=== PATIENT | female | born 1975 | race Caucasian/White ===

== ENCOUNTER 2024-01-24 22:01 | Day surgery (SDC) | payer BC, SELFPAY ==
[2024-01-24 17:19] VITALS: BP 150/102
[2024-01-24] MEDS: ZOFRAN ODT (ORALLY DISINTEGRATING) 4 MG PO (17:24)
[2024-01-24 17:52] LABS: % Basophils 0.3 % (0-2); % Eosinophils 0.1 % (0-6); % Immature Granulocytes 0.5 % (0-0.5); % Lymphocytes 4.3 % (20.5-51.1); % Monocytes 3.1 % (1.7-9.3); % Neutrophils 91.7 % (42.2-75.2); Absolute Basophils 0.1 10^3/uL (0-0.2); Absolute Immature Granulocytes 0.1 10^3/uL (0-0.05); Absolute Lymphocytes 0.7 10^3/uL (1.2-3.4); Absolute Monocytes 0.5 10^3/uL (0.1-0.6); Absolute Neutrophils 14.7 10^3/uL (1.4-6.5); Hematocrit 38.1 % (37.0-47.0); Hemoglobin 11.2 g/dL (12.0-16.0); Mean Corp Hgb Conc. 29.4 g/dL (33.0-37.0); Mean Platelet Volume 9.8 fL (7.4-10.4); Nucleated Red Blood Cells % 0 %; Platelet Count 339 10^3/uL (130-400); Red Blood Cell Count 5.08 10^6/uL (4.20-5.40); Red Cell Dist. Width 16.8 % (11.5-14.5)
[2024-01-24 17:59] LABS: HCG, Serum Qualitative Screen Negative
[2024-01-24 18:03] LABS: ALT (SGPT) 24 U/L (0-35); AST (SGOT) 22 U/L (14-36); Albumin 4.3 g/dl (3.5-5.0); Alkaline Phosphatase 110 U/L (38-126); Blood Urea Nitrogen 20 mg/dl (7-17); Calcium 10.2 mg/dl (8.4-10.2); Carbon Dioxide 25 mmol/L (22-30); Chloride 102 mmol/L (98-107); Glucose 166 mg/dl (70-99); Potassium 4.2 mmol/L (3.5-5.1); Sodium 139 mmol/L (135-145); Total Bilirubin 0.5 mg/dl (0.2-1.3); Total Protein 7.4 g/dl (6.3-8.2); eGFR > 60.00
[2024-01-24 18:04] LABS: Lipase 67 U/L (23-300)
--- NOTE | 2024-01-24 18:50 | ED.GENMED ---
History of Present Illness
General
Chief Complaint: Abdominal Symptoms
Time Seen by Provider: 01/24/24 18:19
Travel History
Have you had any contact with someone who has COVID-19?: No
Do you have any symptoms of coronavirus? Fever > 100 degrees, chills, cough, shortness of breath, sore throat, loss of taste or smell, muscle aches, or headache?: No
History of Present Illness
History of Present Illness:
48-year-old female history of asthma, atrial fibrillation, migraines presenting with upper abdominal pain radiating to lower abdomen starting today after having a slice of pizza at 1 PM. Patient states that pain waxes and wanes but is constant.
Patient reports nausea and an episode of diarrhea since onset. Patient denies vomiting, fever, chest pain, shortness of breath, or abdominal symptoms. Patient denies history of previous abdominal surgeries.
Past History
Past History
ED Past Medical History: Asthma and Other (Paroxysmal A. fib)
ED Past Surgical History: None
Social History
Tobacco: Non-smoker
Alcohol: Occasional
Drug: None
Personal:
Living: with family
Phy Exam
Physical Exam
Physical Exam:
General: Alert, no acute distress
Head: NCAT
Eyes: clear conjunctiva
Neck: supple
Cardiac: regular rate and rhythm, no murmur
Lungs: clear to auscultation bilaterally. No wheezes, rales, or rhonchi. Speaking full unlabored sentences. No respiratory distress.
Abdomen: soft, nondistended diffusely tender. No rebound or guarding.
MSK: no lower extremity edema bilaterally. No deformity
Skin: warm, dry
Neuro: Alert and oriented x3. no focal deficits
Course
Orders/Labs/Results
Orders:
Orders
01/24/24 17:22
Test Result ONCE
01/24/24 17:23
Ondansetron Orally Disint [Zofran Odt (Orally Disintegrating)] 4 mg .ROUTE .STK-MED ONE
01/24/24 17:24
Ondansetron Orally Disint [Zofran Odt (Orally Disintegrating)] 4 mg PO NOW STA
01/24/24 17:38
Complete Blood Count/With Diff Urgent
Comprehensive Metabolic Panel Urgent
HCG, Serum Qualitative Screen Urgent
Lipase Urgent
01/24/24 18:35
CT Abd/pelvis W Iv Cont Urgent
Comment:
Reason For Exam: diffuse abdominal pain, greatest in epigastric
Famotidine [Pepcid] 20 mg IV NOW STA
01/24/24 18:50
UA Reflex to Culture [Urinalysis Reflex To Culture] Urgent
Date Specimen was Collected: 01/24/24
Time Specimen was Collected: 18:59
01/24/24 20:27
Morphine Sulfate 4 mg IV NOW STA
Piperacillin/Tazo 4.5 Gram [Zosyn] 4.5 gram in 100 ml IV NOW
Abnormal Lab Results
01/24/24
17:38
WBC 16.0 H 10^3/uL
(4.8-10.8)
Hgb 11.2 L g/dL
(12.0-16.0)
MCV 75.0 L fL
(81.0-99.0)
MCH 22.0 L pg
(27.0-31.0)
MCHC 29.4 L g/dL
(33.0-37.0)
RDW 16.8 H %
(11.5-14.5)
Abs Immat Gran (auto) 0.1 H 10^3/uL
(0-0.05)
Absolute Neuts (auto) 14.7 H 10^3/uL
(1.4-6.5)
Absolute Lymphs (auto) 0.7 L 10^3/uL
(1.2-3.4)
Neutrophils % 91.7 H %
(42.2-75.2)
Lymphocytes % 4.3 L %
(20.5-51.1)
BUN 20 H mg/dl
(7-17)
Glucose 166 H mg/dl
(70-99)
01/24/24 17:38
01/24/24 17:38
Vital Signs
Initial and Last Documented VS:
Initial Vital Signs
Temp Pulse Resp BP Pulse Ox
98.2 F 74 16 150/102 98
01/24/24 17:19 01/24/24 17:19 01/24/24 17:19 01/24/24 17:19 01/24/24 17:19
Last Documented Vital Signs
Temp Pulse Resp BP Pulse Ox
98.2 F 78 18 151/74 98
01/24/24 17:19 01/24/24 19:14 01/24/24 19:14 01/24/24 19:14 01/24/24 19:14
MDM/Problems Addressed
MDM/Problems Addressed:
Patient presents to the Emergency Department with ___upper abdominal pain radiating to lower abdomen
Number and Complexity of Problems Addressed at the Encounter
� Chronic conditions affecting care:
� Acute Exacerbation and/or Progression of Chronic Illness:
� Differential Diagnosis includes: Gastritis, gastroenteritis, pancreatitis, UTI, biliary colic, ischemic colitis, appendicitis, diverticulitis
Amount and/or Complexity of Data to be Reviewed and Analyzed
� I performed an independent evaluation of and my interpretation is:
EKG:
CT:
Xrays:
Laboratory Studies: leukocytosis
Other:
� Review of other/old records reveals:
� Clinical information was obtained by an independent historian:
� Prescriptions/Medications Considered but not given:
� Further testing considered but not performed:
Risk of Complications and/or Morbidity or Mortality of Patient Management
� Social Determinants of health affecting care:
� Discussion with other providers (PCP, Hospitalists, Consultants, etc):
� Escalation of care including admission/observation vs risk of discharge considered: 48-year-old female history of hypothyroidism status post thyroidectomy, atrial fibrillation not on any medications presenting with abdominal pain radiating to
lower abdomen starting today around 1 PM after eating pizza. Initially diffusely tender but then more localized to RLQ. CT abdomen/pelvis shows acute early/mild uncomplicated appendicitis. Ordered zosyn. Discussed with Dr. Adkins, general surgery,
who accepts for admission.
*Critical Care Note
Total Time (30-74mins, 75-104mins- exclusive of procedures): Not Applicable
ED Attending Note
-
Portions of this chart may have been created with voice recognition software.� Occasional wrong word or��sound alike� substitutions may have occurred due to the inherent limitations of voice recognition software.
Discharge Plan
Departure
Patient Disposition: Admit
Date of Disposition: 01/24/24
Time of Disposition: 20:37
Admit to doctor: Jed
Presentation/result/management discussed w/ accepting MD/DO: general surgery
Patient with high blood pressure during this ER visit?: Yes
Discharge Problem:
Acute appendicitis
Prescriptions:
No Action
ibuprofen [Advil Liqui-Gel] 200 MG capsule
600 mg PO Q8H PRN (Reason: mild pain)
Referrals:
Navjot Saucedo MD [Family Provider] -
Interventions
Interventions:
*Risk Screen - Suicide Last Done: 01/24/24 18:07
*General Assessment Last Done: 01/24/24 18:07
*Neglect/Abuse Screening Last Done: 01/24/24 18:07
ED- Fall Risk Assessment Last Done: 01/24/24 18:07
*ED COVID-19 Vaccine History Last Done: 01/24/24 17:19
RV-Xfjupv-Mkxgekvvfe Assessment Last Done: 01/24/24 18:07
Discharge Date and Time
Print Language: ICELANDIC
[2024-01-24] MEDS: PEPCID 20 MG IV (19:00)
[2024-01-24 19:14] VITALS: BP 151/74
[2024-01-24] MEDS: ZOSYN 100 IV (20:32)
[2024-01-24] MEDS: MORPHINE SULFATE 4 MG IV (20:33)
[2024-01-24 21:01] VITALS: BP 150/73
[2024-01-24] MEDS: DILAUDID 0.5 MG IV (21:51)
--- NOTE | 2024-01-24 22:07 | HPS.HSE ---
Addendum entered and electronically signed by Buster Adkins MD 01/25/24 07:21:
Patient seen and examined independently.
Patient is a 48 yo F with a PMH of morbid obesity, asthma, hypothyroidism s/p thyroidectomy, and paroxysmal A-fib (no anticoagulation) who presents with approximately 24 hours of abdominal pain. Ms. Puri states that her symptoms began
yesterday after having a slice of pizza. She describes a achy lower abdominal pain worse in the RLQ with sharper episodes of pain radiating across to her lower abdomen. Subjective fevers and chills. Associated nausea, but no vomiting. Looser
stools. She does have chronic GI issues and has self diagnosed IBS. No definitive GI diagnoses. No strong family history of colon cancer or IBD. No prior colonoscopies.
Gen: NAD
Abd: obese, soft, exam limited by obesity, RLQ tenderness, ND, non-peritoneal
Labs and imaging were reviewed.
Patient is a 48 yo F p/w acute appendicitis
The natural history and pathophysiology of appendicitis was discussed. CT scan imaging as a relates to her appendix was reviewed. Options for management including medical management with antibiotics versus surgical management with appendectomy
were considered and discussed. The pros and cons of both approaches was discussed. Specifically, we discussed failure of medical management and future episodes of appendicitis versus surgical risks.
Plan for a laparoscopic possible open appendectomy. The procedure itself, as well as the risks, benefits, and alternatives was discussed. Specifically, we discussed the risks of bleeding, infection, injury to surrounding structures (bowel,
bladder), staple line leak, need for open procedure. Typical postprocedural recovery was discussed. All questions answered. Consent signed.
-- Laparoscopic appendectomy
-- NPO, IVF
-- Antibiotics: Zosyn
Original Note:
Family Physician
-
Family Physician: Navjot Saucedo
Chief Complaint
-
abd pain
History of Present Illness
48-year-old female history of asthma, parox atrial fibrillation (due to hyperthyroidism) , migraines presenting with upper abdominal pain radiating to lower abdomen starting today after having a slice of pizza at 1 PM. During episode of pain she
experienced cold sweats and 'passed out.' Patient states that pain waxes and wanes but is constant. Patient reports nausea and an episode of diarrhea since onset. Patient denies vomiting, fever, chest pain, shortness of breath, or abdominal
symptoms. Patient denies history of previous abdominal surgeries.
ED treatment:
CT Abd: mild/early appendicitis
morphine- mild relief in pain
zosyn iv
WBC 16
Medical History
Past Medical History
Past Medical History: Reports Arrhythmia (parox afib due to hyperthyroidism (no meds)), Asthma, Hyperthyroidism and Other (migraine)
Past Surgical History: Reports Tonsilectomy
Additional Past Surgical History:
thyroidectomy 2019
anal fistula repair 1998
Social History
Tobacco: Non-smoker
Alcohol: None
Drug: None
Personal:
Living: With Family
Employment: Employed
Family History
Family History: Not pertinent
Allergies / Home Medications
Allergies reflects when Allergies were last updated in [employer].
Home Medications with original date entered in [employer]
Allergy/Medication List:
Allergies
Allergy/AdvReac Type Severity Reaction Status Date / Time
Sulfa (Sulfonamide Allergy Rash Verified 01/24/24 17:21
Antibiotics)
sulfamethoxazole Allergy Rash Verified 01/24/24 17:21
trimethoprim Allergy Denies Verified 01/24/24 17:21
Home Medications
no meds
Review of Systems
-
History Source: Patient
A 12 point ROS was completed and negative except as noted: Yes
Constitutional: Reports Chills
EENT: Reports No Symptoms
Respiratory: Reports No Symptoms
Cardiac: Reports No Symptoms
Abdomen/GI: Reports Abdominal Pain, Nausea and Diarrhea
: Reports No Symptoms
Musculoskeletal: Reports No Symptoms
Skin: Reports No Symptoms
Neurological: Reports No Symptoms
Endocrine: Reports No Symptoms
Hematologic/Lymphatic: Reports No Symptoms
Psych: Reports No Symptoms
Physical Exam
Vital Signs
Vital Signs
Temp Pulse Resp BP Pulse Ox
98.2 F 74 18 150/73 98
01/24/24 17:19 01/24/24 21:01 01/24/24 21:01 01/24/24 21:01 01/24/24 21:01
Physical Exam
General: Well Developed, Well Nourished, No Apparent Distress, Comfortable and Pain (12/21)
HEENT: NormoCephalic and Moist mucous membranes
Respiratory: Non Labored Respirations
Cardiac: S1/S2 and Regular Rhythm
Breast: Deferred by me
GI: Normal Bowel Sounds, Tender (epigastric to RLQ) and Distended (mildly, pt states she feels bloated)
Rectal: Deferred by Provider
Genito-urinary: Deferred by me
Musculoskeletal: No Clubbing and No Cyanosis
Skin: Warm and Dry
Neuro: Awake, Alert, Oriented and AO x 3
Hematologic/Lymphatic: No Lymphadenopathy
Psych: Calm
Laboratory Results
-
01/24/24 17:38
01/24/24 17:38
Laboratory Results
Total Bilirubin 0.5 mg/dl (0.2-1.3) 01/24/24 17:38
AST 22 U/L (14-36) 01/24/24 17:38
ALT 24 U/L (0-35) 01/24/24 17:38
Alkaline Phosphatase 110 U/L (38-126) 01/24/24 17:38
Lipase 67 U/L (23-300) 01/24/24 17:38
Data Reviewed
-
CT Scan: Report Reviewed by me and Discussed with Physician
Lab Data: Labs Reviewed by me
Impression/Plan
-
IMPRESSION:
acute uncomplicated appendicitis
PLAN:
Admit to service of Dr Adkins
Med surg
# acute appendicitis (uncomplicated)
Diet: Clears for now and NPO x meds after midnight
IVF: nss @100
Pain control: tylenol prn, dilaudid prn
cont zosyn
Other past med hx:
-parox afib due to hyperthyroidism- on no meds
-asthma - has not used albuterol in years
-morbid obesity
Full code
SCD for dvt proph
[2024-01-24 22:38] VITALS: BP 147/72
[2024-01-24 23:05] VITALS: BP 135/82
[2024-01-24 23:40] VITALS: BMI 39.2
[2024-01-24] MEDS: NSS 1000 IV (23:45)
[2024-01-24 23:46] VITALS: BP 131/80
[2024-01-25] VITALS (8 sets, daily range): BP systolic 121–153; BP diastolic 65–89; BMI 39.2; BMI 39.4
--- NOTE | 2024-01-25 00:30 | PTCARENOTE ---
Pt from ER via stretcher,tolerated transfer well.Pt ambulatory in to room,physical assessment preformed pt states abd pain is intermittent amd controlled at this time,IVT initiated NSS at 100mls,VS stable afebrile,sleeping after assessment.
[2024-01-25] MEDS: DILAUDID 0.5 MG IV (01:31)
[2024-01-25] MEDS: ZOSYN 50 IV ×3 (01:32→20:51)
[2024-01-25 05:14] LABS: Hematocrit 33.8 % (37.0-47.0); Hemoglobin 10.1 g/dL (12.0-16.0); Mean Corp Hgb Conc. 29.9 g/dL (33.0-37.0); Mean Corpuscular Hgb 22.2 pg (27.0-31.0); Mean Corpuscular Volume 74.3 fL (81.0-99.0); Mean Platelet Volume 10.3 fL (7.4-10.4); Platelet Count 329 10^3/uL (130-400); Red Blood Cell Count 4.55 10^6/uL (4.20-5.40); White Blood Cell Count 14.3 10^3/uL (4.8-10.8)
[2024-01-25 05:40] LABS: ALT (SGPT) 23 U/L (0-35); AST (SGOT) 23 U/L (14-36); Albumin 3.5 g/dl (3.5-5.0); Alkaline Phosphatase 88 U/L (38-126); Blood Urea Nitrogen 16 mg/dl (7-17); Calcium 8.9 mg/dl (8.4-10.2); Carbon Dioxide 23 mmol/L (22-30); Chloride 106 mmol/L (98-107); Estimated Creatinine Clearance > 125 ml/min; Glucose 113 mg/dl (70-99); Sodium 137 mmol/L (135-145); Total Bilirubin 0.7 mg/dl (0.2-1.3); Total Protein 6.5 g/dl (6.3-8.2); eGFR > 60.00
--- NOTE | 2024-01-25 07:22 | W.SUR.PREOP ---
Pre-Operative Surgical Note
-
I have examined this patient prior to the performance of the scheduled procedure.
The patient's condition is unchanged from the time of the current History and
Physical and the patient is able to undergo the scheduled procedure.
[2024-01-25] MEDS: DILAUDID 0.25 MG IV ×2 (07:46→18:11)
[2024-01-25] MEDS: NSS 1000 IV ×2 (10:15→20:53)
[2024-01-25] MEDS: ZOFRAN 4 MG IV (11:32)
--- NOTE | 2024-01-25 13:45 | CM ---
Initial assessment completed with patient and who live with 2 adult children (21 and 23) in a 2 story home with basement with B/B on 2nd and 1/2 bath on , 3 steps to enter, No DME in home, no in-home services, [employer] patient was independent,
drove and worked FT. No psychiatric hospitalizations. Pharmacy is [facility] in [place], [place], PCP is Dr. Navjot Saucedo in [facility]. Anticipate home with no needs.
[2024-01-25] MEDS: ZOSYN IV (14:16)
--- NOTE | 2024-01-25 14:49 | W.IMMPOSTOP ---
Addendum entered and electronically signed by Buster Adkins MD 01/25/24 14:58:
[facility]#[id number]
Original Note:
Surgical Immed Post Op Note
-
Primary Surgeon: Jed
Assisting Surgeon: None
Pre-op Diagnosis: Acute appendicitis
Post-op Diagnosis: Acute appendicitis
Procedure Performed: Laparoscopic appendectomy
Anesthesia Type: General
Specimen / Cultures:
1. Appendix
Estimated Blood Loss: 3 cc
Complications: None
Operative Findings:
1. Acutely inflamed, non-perforated appendix
2. Mesentery taken with [employer], Base with paez load stapler
[2024-01-25] MEDS: ROXICODONE 5 MG PO (15:48)
--- NOTE | 2024-01-25 15:54 | CM ---
Addendum entered by Ivone Zuluaga 01/26/24 15:23:
Discharge on 01/25/24 was postponed due to patient experiencing abdominal pain and nausea. Remained in hospital overnight for observation and management of symptoms. Patient is feeling better and has been medically cleared for discharge today.
Patient does not feel she needs any skilled services after discharge. will transport home.
Original Note:
Patient has been medically cleared for discharge to home with no additional skilled services. transporting home.
--- NOTE | 2024-01-25 18:32 | W.PN.SURGUPD ---
Surgical Update
Surgical Update
Patient reports some persistent postoperative pain, not unexpected or worrisome at this time. Patient to remain in hospital overnight for close monitoring. Tentative plan for discharge tomorrow.
--- NOTE | 2024-01-25 18:52 | PTCARENOTE ---
Patient with discharge order pending tolerating dinner and pain being managed- patient complaining of 6/10 abdominal pain and pain with dinner. Requested to stay the night and discharge tomorrow. Dr. Adkins notified and stated that was okay.
[2024-01-26] MEDS: ZOSYN 50 IV ×2 (01:05→09:10)
[2024-01-26] MEDS: ZOFRAN 4 MG IV (01:55)
[2024-01-26] MEDS: DILAUDID 0.25 MG IV (02:25)
[2024-01-26 04:23] VITALS: BP 137/90; BMI 39.4
[2024-01-26] MEDS: NSS 1000 IV (06:22)
[2024-01-26 07:26] VITALS: BP 134/73
--- NOTE | 2024-01-26 10:23 | W.PN.GS2 ---
Today's Communication / Plan
-
-- DC today
Assessment / Plan
-
Patient is a 48 yo F POD#1 s/p laparoscopic appendectomy
Recovering well. No postoperative concerns.
-- Regular diet
-- Pain control: Tylenol, Toradol, Oxycodone
-- HLIV
-- Lovenox for DVT
-- No need for further abx
-- DC today
Subjective Data
-
Date of Service: January 26, 2024
Mild nausea overnight. Abdominal soreness. No nausea or emesis. Afebrile. Minimal ambulation.
Objective Data
-
Intake and Output
01/25/24 01/26/24 01/27/24
06:59 06:59 06:59
Intake Total 500 / 500 2580 / 2580
Balance 500 / 500 2580 / 2580
Intake:
Oral fluids 480 / 480
IV fluids (Total) 500 / 500 2000 / 2000
Normosol 100 / 100
IV piggybacks 100 / 100
Other:
Number of approximated MODERATE 4
amounts of urine
Number of approximated LARGE 1
amounts of urine
How many times incontinent 1
MODERATE amount urine
Number of unmeasured liquid
stools
Rectum 1
Vital Signs
Temp Pulse Resp BP Pulse Ox
98.5 F 78 17 134/73 97
01/26/24 07:26 01/26/24 07:26 01/26/24 07:26 01/26/24 07:26 01/26/24 07:26
Lab Results
01/25/24 04:25
01/25/24 04:25
Calcium 8.9 mg/dl (8.4-10.2) 01/25/24 04:25
Total Bilirubin 0.7 mg/dl (0.2-1.3) 01/25/24 04:25
AST 23 U/L (14-36) 01/25/24 04:25
ALT 23 U/L (0-35) 01/25/24 04:25
Alkaline Phosphatase 88 U/L (38-126) 01/25/24 04:25
Total Protein 6.5 g/dl (6.3-8.2) 01/25/24 04:25
Albumin 3.5 g/dl (3.5-5.0) 01/25/24 04:25
Physical Exam
-
Gen: NAD
Abd: soft, mild tenderness, obese, non-peritoneal, incisions c/d/i - no erythema, ecchymosis or drainage
[2024-01-26 11:40] VITALS: BP 160/85
--- NOTE | 2024-01-26 12:34 | PTCARENOTE ---
Pt noted to be hypertensive while resting in bed, denies pain at this time. Dr Dunbar made aware. No new orders at this time, care ongoing.
[2024-01-26 15:30] VITALS: BP 151/81
== END 2024-01-26 15:53 | disposition home or self-care (01) ==
LOC: SDS 22:01
PROVIDERS: Emergency Medicine; Nurse Practitioner Family; ATTENDING PHYSICIAN Surgery; EMERGENCY PHYSICIAN Emergency Medicine; FAMILY PHYSICIAN Family Medicine
DX: K35.80 Unspecified acute appendicitis (principal); E66.9 Obesity, unspecified; Z68.39 Body mass index [BMI] 39.0-39.9, adult
CPT/HCPCS: 44970; 88304; 74177; 80053; 83690; 84703; 85025; 85027; 96365; 96375; 99285; G0378; Q9967

== ENCOUNTER → 2024-04-07 14:54 | Outpatient (REF) | payer BC, SELFPAY | LOC: HWRAD 14:54 | PROVIDERS: ATTENDING PHYSICIAN Nurse Practitioner Adult Health; FAMILY PHYSICIAN Family Medicine | DX: D25.9 Leiomyoma of uterus, unspecified (principal) | CPT/HCPCS: 76830; 76856 ==

== ENCOUNTER → 2024-05-18 13:38 | Outpatient (REF) | payer BC, SELFPAY | LOC: PAVMRI 13:38 | PROVIDERS: ATTENDING PHYSICIAN Nurse Practitioner Adult Health; FAMILY PHYSICIAN Family Medicine | DX: D25.9 Leiomyoma of uterus, unspecified (principal); N92.4 Excessive bleeding in the premenopausal period | CPT/HCPCS: 72197; A9575 ==

== ENCOUNTER → 2024-06-19 11:13 | Outpatient (REF) | payer BC, SELFPAY | LOC: RADI 11:13 | PROVIDERS: ATTENDING PHYSICIAN Obstetrics & Gynecology Gynecology; FAMILY PHYSICIAN Family Medicine | DX: D25.9 Leiomyoma of uterus, unspecified (principal) ==

== ENCOUNTER 2024-07-12 06:46 | Day surgery (SDC) | payer BC, SELFPAY ==
[2024-07-10 15:50] VITALS: BMI 36.7
[2024-07-12] VITALS (22 sets, daily range): BP systolic 51–161; BP diastolic 71–98
[2024-07-12 07:18] LABS: Hematocrit 37.7 % (37.0-47.0); Hemoglobin 11.8 g/dL (12.0-16.0); Mean Corp Hgb Conc. 31.3 g/dL (33.0-37.0); Mean Corpuscular Hgb 23.5 pg (27.0-31.0); Mean Corpuscular Volume 75.1 fL (81.0-99.0); Mean Platelet Volume 10.5 fL (7.4-10.4); Platelet Count 335 10^3/uL (130-400); Red Blood Cell Count 5.02 10^6/uL (4.20-5.40); Red Cell Dist. Width 16.6 % (11.5-14.5); White Blood Cell Count 7.3 10^3/uL (4.8-10.8)
[2024-07-12 07:28] LABS: Blood Urea Nitrogen 23 mg/dl (7-17); Estimated Creatinine Clearance > 125 ml/min
[2024-07-12 07:33] LABS: HCG, Urine Qualitative Screen Negative
[2024-07-12] MEDS: ANCEF 15 MG IV (08:22)
[2024-07-12] MEDS: BENADRYL 25 MG IV (08:23)
[2024-07-12] MEDS: DECADRON 10 MG IV (08:23)
[2024-07-12] MEDS: NSS 1000 IV (08:23)
[2024-07-12] MEDS: ZOFRAN 8 MG PO (08:24)
[2024-07-12] MEDS: OFIRMEV 100 IV (10:54)
[2024-07-12] MEDS: TORADOL 10 MG IV ×3 (12:00→23:55)
--- NOTE | 2024-07-12 14:40 | PTCARENOTE ---
IRAD note: patient transferred to [facility] by this RN and volunteer. Right groin site and Pedal pulses checked with receiving nurse Nannette. Nannette Nurse notified of Cruz removal at 1407 and now pt is due to void.
[2024-07-12] MEDS: DILAUDID 0.5 MG IV (14:58)
--- NOTE | 2024-07-12 15:05 | PTCARENOTE ---
Patient received from Irad AA&O x3, family at bedside. Lungs CTA, Abdomen soft, IV NS @100cc/hr to right forearm infusing without difficulty. Bandaid to right groin C & I, positive pedal pulses bilat. Pt medicated for a pain level of 6. see MAR.
Pt due to void at this time. Pt instructed to order dinner. vss. see worklist.
--- NOTE | 2024-07-12 17:45 | PTCARENOTE ---
Pt oob to bathroom ambulated independently and voided qs. Pt tolerated regular diet and is currently sitting in chair visiting with family. IV fluids capped and vss, see worklist for details.
--- NOTE | 2024-07-12 19:15 | PTCARENOTE ---
07/12/20241914 Pt received into my care. Assessment performed, pt sitting up in the chair. Pt is Alert and oriented x3. Pt has some abdominal discomfort, however denies need for additional pain medication. Call medina within reach.
[2024-07-12] MEDS: ROXICODONE 5 MG PO (21:15)
[2024-07-13 03:15] VITALS: BP 120/71
[2024-07-13] MEDS: ROXICODONE 5 MG PO ×2 (03:40→07:58)
[2024-07-13] MEDS: NSS IV (04:00)
[2024-07-13] MEDS: TORADOL 10 MG IV (05:55)
--- NOTE | 2024-07-13 07:02 | PTCARENOTE ---
Pt slept fairly well, pain medication given as per MD order. No changes in Nursing assessment.
--- NOTE | 2024-07-13 07:23 | W.PN.GENERIC ---
Assessment / Plan
-
48 yo female with symptomatic uterine fibroids who underwent UFE yesterday
She is voiding spontaneously
She is tolerating POs
She is stable for discharge today
Physician Progress Note
Subjective
This is a pleasant 48-year-old female who has been having heavy menses for several years. She was found to have uterine fibroids. She underwent UFE yesterday. She is still having some cramping. She is ocasssionally nauseous but is tolerating
POs. She is voiding spontaneously. She denies fever, chills, CP, palpitations, SOB.
PMH: Uterine fibroids, hyperthyroidism, atrial fibrillation, migraine headaches, pertussis.
PSH: Thyroidectomy, appendectomy, rectal fistula with surgical repair.
Social History: She is a nonsmoker. She rarely drinks alcohol
Allergies: Sulfa medication.
Current Medications: Acetaminophen 325 mg 2 tablets 4 times a day as needed, albuterol sulfate 2 puffs every 4 hours as needed, ibuprofen 600 mg every 8 hours as needed, transient stomach acid 650 mg 2 tablets orally 3 times a day. Will go the 0.5
mg per 0.5 mL solution.
Objective
Vital Signs
Temp Pulse Resp BP Pulse Ox
98.2 F 60 14 120/71 95
07/13/24 03:15 07/13/24 03:15 07/13/24 03:15 07/13/24 03:15 07/13/24 03:15
Lab Results
07/12/24 07:00
07/12/24 07:00
Physical examination: This is a pleasant 48-year-old female who is awake, alert and oriented in no acute distress. Surgical scar noted in her neck from prior thyroidectomy. Her color is good. Her skin is warm and dry. Heart is regular. Normal
respiratory effort. Abdomen is soft, round and nontender. Right groin dressing CDI. No hematoma. Palpable inguinal and pedal pulses. No LE calf pain or edema.
[2024-07-13 08:40] VITALS: BP 136/64
--- NOTE | 2024-07-13 09:16 | CM ---
Met with pt at bedside
Pt reports she lives in a 2 story home with her and children; 3 steps to enter, 14 steps to 2nd fl
Independent, employed FT, drives
DME - none
SNF/HH - denies past hx
Has ride home at discharge
PCP - Navjot Saucedo
Pharm - [facility]
Plan - anticipate home no needs
[2024-07-13] MEDS: AFLURIA (36 mos+) 2024-2025 FORMULA 0.5 ML IM (09:29)
--- NOTE | 2024-07-13 09:42 | PTCARENOTE ---
Received pt AAOx3 lungs clear bilaterally, BSx4 oob to bathroom to urinate, femoral and pedal pulses bilaterally.no vaginal bleeding at present. pt states relief with pain medications. pt requesting flu vaccine, INT D/C catheter intact. Discharge
instructions explained to pt and , verbalized understanding,
== END 2024-07-13 10:00 | disposition home or self-care (01) ==
LOC: RADI 06:46
PROVIDERS: ATTENDING PHYSICIAN Radiology Diagnostic Radiology; FAMILY PHYSICIAN Family Medicine; REFERRING PHYSICIAN Obstetrics & Gynecology Gynecology
DX: D25.9 Leiomyoma of uterus, unspecified (principal); N92.1 Excessive and frequent menstruation with irregular cycle
CPT/HCPCS: 37243; 36247; 36415; 75736; 76937; 81025; 82565; 84520; 85027; 85610; 90686; 99152; 99153; C1769; G0008

== ENCOUNTER 2024-07-31 18:35 | Emergency (ER) | payer BC, SELFPAY ==
[2024-07-31 18:42] VITALS: BP 143/108
--- NOTE | 2024-07-31 20:24 | EDRN ---
Outpatient labs from today in [facility], as is CXR (NAD).
--- NOTE | 2024-07-31 20:44 | ED.GENMED ---
History of Present Illness
<Faye Mott DO - Last Filed: 07/31/24 20:45>
General
Chief Complaint: Cold/Flu/URI Symptoms
Time Seen by Provider: 07/31/24 21:26
<Yimi Thomas MD - Last Filed: 08/01/24 00:23>
General
Source: patient and records
Exam Limitations: none
Nursing documentation reviewed up to this point in time: agreed with
History of Present Illness
History of Present Illness:
48-year-old female with history as documented presents to the emergency room for evaluation of flulike illness. Patient reports that she started about 2 weeks ago with fever and chills; initially symptoms were associated with 'UTI
symptoms'--patient describes increased urinary frequency and sensation of incomplete emptying. Seen by her primary doctor and was prescribed Macrobid x 5 days. Patient says UTI symptoms improved but fever and chills did not. Over the past week
she has started develop myalgias, cough, increasing shortness of breath. Still having fevers she says with a Tmax of 102. She saw her primary doctor who sent her for outpatient testing and she was referred to the emergency room to follow-up on
these results, notably had an elevated procalcitonin level. Aside from above symptoms patient denies any chest pain. She denies abdominal pain, nausea, vomiting, diarrhea although she does report poor appetite. She denies any headache or neck
pain/stiffness. She denies any recent insect bites. No rash. Denies sore throat or nasal congestion/runny nose. Denies other complaints. Of note patient did have uterine fibroid embolization with interventional radiology on 07/12/2024.
Past History
<Faye Mott DO - Last Filed: 07/31/24 20:45>
Past History
ED Past Medical History: Asthma and Other (Paroxysmal A. fib)
ED Past Surgical History: None
Social History
Tobacco: Non-smoker
Alcohol: Occasional
Drug: None
Personal:
Living: with family
Review of Systems
<Yimi Thomas MD - Last Filed: 08/01/24 00:23>
Review of Systems
All Other Systems: ROS reviewed and negative except as documented in HPI and ROS
Constitutional: Reports fever, fatigue and chills
EENT: Denies sore throat or runny nose
Respiratory: Reports cough and trouble breathing
Cardiac: Denies chest pain or palpitations
ABD/GI: Reports anorexia; Denies abdominal pain, nausea, vomiting or diarrhea
: Denies dysuria, frequency or flank pain
Musculoskeletal: Reports muscle pain; Denies neck pain or back pain
Skin: Denies rash
Neurological: Denies dizzy or headache
Phy Exam
<Yimi Thomas MD - Last Filed: 08/01/24 00:23>
Physical Exam
Physical Exam:
General: Awake, alert, oriented x3; no acute distress
Head: Normocephalic, atraumatic
Eyes: Conjunctiva normal, EOMI
Throat: Airway intact, handling secretions, no pharyngeal erythema, palatal petechiae or uvular erythema/edema
Neck: Trachea midline, supple without meningismus
Lungs: Clear to auscultation bilaterally, no wheezing, rales, rhonchi; occasional cough
Heart: Regular rate and rhythm, no murmurs, gallops, or rubs
Abd: Soft, non distended, nontender
Neuro: No gross deficits
Extremities: No edema in extremities, warm and well-perfused
Scores
<Yimi Thomas MD - Last Filed: 08/01/24 00:23>
Heart Failure Risk
Heart Failure Risk Score: Not Applicable
Heart Score for Chest Pain Patients
STEMI patient?: Not applicable
Withdrawal Assessment of Alcohol
Withdrawal Assessment Completed?: Not applicable
Sepsis
<Yimi Thomas MD - Last Filed: 08/01/24 00:23>
Sepsis Screening
Sepsis Assessment: Sepsis Ruled Out
Sepsis Screen
Sepsis Screen: Sepsis Ruled Out
Date: 07/31/24
Time: 23:39
Course
<Faye Mott DO - Last Filed: 07/31/24 20:45>
Orders/Labs/Results
Orders:
Orders
07/31/24 18:46
Test Result ONCE
07/31/24 23:34
Amoxicillin 875 mg/Clav 125 mg [Augmentin 875 mg/125 mg] 1 tablet PO NOW STA
Doxycycline [Vibramycin] 100 mg PO NOW STA
07/31/24 23:45
Blood Culture Q30M
HERMINIA Source: Blood/Venous
Specimen Description:
07/31/24 18:46
07/31/24 18:46
Vital Signs
Initial and Last Documented VS:
Initial Vital Signs
Temp Pulse Resp BP Pulse Ox
36.5 C 68 18 143/108 96
07/31/24 18:42 07/31/24 18:42 07/31/24 18:42 07/31/24 18:42 07/31/24 18:42
Last Documented Vital Signs
Temp Pulse Resp BP Pulse Ox
36.5 C 68 18 143/108 96
07/31/24 18:42 07/31/24 18:42 07/31/24 18:42 07/31/24 18:42 07/31/24 18:42
<Yimi Thomas MD - Last Filed: 08/01/24 00:23>
Orders/Labs/Results
Orders:
Orders
07/31/24 18:46
Test Result ONCE
07/31/24 23:34
Amoxicillin 875 mg/Clav 125 mg [Augmentin 875 mg/125 mg] 1 tablet PO NOW STA
Doxycycline [Vibramycin] 100 mg PO NOW STA
07/31/24 23:45
Blood Culture Q30M
HERMINIA Source: Blood/Venous
Specimen Description:
07/31/24 18:46
07/31/24 18:46
Vital Signs
Initial and Last Documented VS:
Initial Vital Signs
Temp Pulse Resp BP Pulse Ox
36.5 C 68 18 143/108 96
07/31/24 18:42 07/31/24 18:42 07/31/24 18:42 07/31/24 18:42 07/31/24 18:42
Last Documented Vital Signs
Temp Pulse Resp BP Pulse Ox
36.5 C 68 18 143/108 96
07/31/24 18:42 07/31/24 18:42 07/31/24 18:42 07/31/24 18:42 07/31/24 18:42
<Yimi Thomas MD - Last Filed: 08/01/24 00:23>
MDM/Problems Addressed
Differential Diagnosis Includes:
Pneumonia, UTI, viral syndrome
MDM/Problems Addressed:
48-year-old female presents with fever, myalgias, cough, shortness of breath developing over the past week; also had UTI symptoms that preceded today's symptoms which resolved with treatment using Macrobid. Her vital signs here are significant only
for marginal diastolic hypertension; heart rate and respiratory rate are normal. Patient is afebrile. Pulse ox is normal on room air. I reviewed diagnostic testing from today which was done as an outpatient: Her CBC shows no leukocytosis and no
bandemia. Her chemistry shows marginal elevation of transaminases which could favor a viral infection. She reports that she had a urinalysis in the office which was normal. She had a chest x-ray which was negative for any signs of acute
pneumonia. PCP called ahead�there was some concern with elevated CRP and procalcitonin potentially for sepsis. Unclear what the utility/significance of these tests is in the setting of patient's current syndrome�at this point she has no findings
to suggest sepsis: She has 0 SIRS criteria and no clear focus for infection. Her symptoms seem most consistent with a viral syndrome especially in light of negative chest x-ray today. I did discuss with infectious disease, unclear how to interpret
these tests in this clinical scenario. Patient has been here in the emergency room for over 4 hours and has had stable vitals and no fever. Her clinical picture seems consistent with a viral syndrome but given elevated procalcitonin I do think it
would be reasonable to cover with antibiotics for possible occult or developing pneumonia. She has already been given a prescription for Augmentin by her primary doctor and can add on doxycycline to fully cover for community-acquired pneumonia.
Can also send off blood cultures to be followed up on an outpatient basis but at this point I do not see any clear indication for hospital admission. I did speak to the patient and I offered admission for observation and she feels comfortable going
home on oral antibiotics and following up with her primary doctor. We did speak in detail about return precautions including worsening symptoms or failure to improve after a few days; all questions were answered.
<Yimi Thomas MD - Last Filed: 08/01/24 00:23>
*Radiology
Radiology exam reviewed: radiology read reviewed
*Pulse Oximetry
Patient hypoxic: no
*Critical Care Note
Total Time (30-74mins, 75-104mins- exclusive of procedures): Not Applicable
Data Reviewed
Source: patient and physician
<Yimi Thomas MD - Last Filed: 08/01/24 00:23>
Patient Management
Discussion with other providers: PCP (PCP called ahead) and Audio Visual Arts Director (Discussed with infectious disease)
Escalation/DeEscalation of care consider admission/obs:
Considered hospital admission for observation�shared decision making, discharged with close outpatient follow-up
ED Attending Note
<Faye Mott DO - Last Filed: 07/31/24 20:45>
-
Portions of this chart may have been created with voice recognition software.� Occasional wrong word or��sound alike� substitutions may have occurred due to the inherent limitations of voice recognition software.
Discharge Plan
Departure
Patient Disposition: Home (Routine Discharge)
Date of Disposition: 07/31/24
Time of Disposition: 23:37
Patient with high blood pressure during this ER visit?: Yes
Discharge Problem:
Pneumonia
Instructions: Pneumonia, Adult ED
Prescriptions:
New
doxycycline hyclate 100 mg tablet
100 mg PO BID 7 Days Qty: 14 0RF
No Action
ibuprofen [Advil Liqui-Gel] 200 MG capsule
600 mg PO Q8H PRN (Reason: mild pain)
acetaminophen 325 mg tablet
650 mg PO Q4HPRN PRN (Reason: mild pain) Qty: 1 0RF
oxycodone 5 mg tablet
5 mg PO Q4HPRN PRN (Reason: breakthrough/severe pain) Qty: 10 0RF
albuterol sulfate 90 mcg/actuation Hfa Aerosol Inhaler
2 puff INHALATION QID PRN (Reason: Asthma)
tranexamic acid 650 mg Tablet
1,300 mg PO Q8H
Rx Instructions:
takes during menstrual periods
Wegovy 1 mg/0.5 mL Pen Injector
1 mg SC QWEEK
oxycodone-acetaminophen [Percocet] 5-325 mg Tablet
1 tab PO Q4H Qty: 15 0RF
ondansetron 4 mg Tablet,Disintegrating
4 mg PO Q8H PRN (Reason: NAUSEA) Qty: 15 0RF
ketorolac 10 mg tablet
10 mg PO Q6H Qty: 12 0RF
Rx Instructions:
maximum total duration of 5 days from all oral, intranasal, or parenteral formulations
Referrals:
Navjot Saucedo MD [Family Provider] - Follow up in 2-3 days
Activity Restrictions/Additional Instructions:
Thank you for visiting the Emergency Department at [facility].
1. Please schedule a follow up appointment as directed. Call first thing tomorrow morning to make an appointment.
2. If indicated, please take your medications as instructed and indicated on discharge paperwork.
3. If any of your symptoms do not improve, or persist, or become more severe within 6-12 hours, please return to the emergency department for further care.
4. Please return to the emergency department if you develop a headache, neck pain/stiffness, fever greater than 100.4F, chest pain, shortness of breath, persistent nausea, vomiting, slurred speech, difficulty walking, numbness/tingling, weakness,
signs of infection or any other symptoms that are worrisome to you.
Please call [phone] if you have any questions.
Interventions
Interventions:
*Risk Screen - Suicide Last Done: 07/31/24 18:42
*General Assessment Last Done: 07/31/24 18:42
*ED COVID-19 Vaccine History Last Done: 07/31/24 18:42
ED- Pulmonary Assessment Last Done: 07/31/24 20:27
Discharge Date and Time
Print Language: ALBANIAN
[2024-07-31] MEDS: VIBRAMYCIN 100 MG PO (23:49)
[2024-07-31] MEDS: AUGMENTIN 875 MG/125 MG 1 TABLET PO (23:49)
[2024-08-01 00:16] VITALS: BP 140/95
== END 2024-08-01 00:18 | disposition home or self-care (01) ==
LOC: EMR 18:35
PROVIDERS: EMERGENCY PHYSICIAN Emergency Medicine; FAMILY PHYSICIAN Family Medicine
DX: J18.9 Pneumonia, unspecified organism (principal); J45.909 Unspecified asthma, uncomplicated; I48.0 Paroxysmal atrial fibrillation
CPT/HCPCS: 99282; 36415; 71046; 80053; 84145; 85025; 86140; 87040